=== PATIENT | female | born 1970 | race Caucasian/White ===

== ENCOUNTER 2024-02-04 07:18 | Emergency (ER) | payer SELFPAY ==
[~2024-02-04] VITALS: Ht 154.9 cm; Wt 55.5 kg
[2024-02-04 07:23] VITALS: BP 146/86; PULSE 73; RESP 16; TEMP 97.7; O2SAT 100
[2024-02-04] MEDS: KETOROLAC 30 MG/ML VIAL IM ONE (07:56)
[2024-02-04] MEDS: ACETAMINOPHEN EXTRA STRENGTH 500 MG TAB PO ONE (07:56)
[2024-02-04 08:33] LABS: BASOPHILS % (AUTO) 0.9 % (0.0-2.0); EOSINOPHILS % (AUTO) 1.1 % (0.0-4.0); HEMATOCRIT 37.5 % (36-48); HEMOGLOBIN 12.9 g/dL (12.0-16.0); LYMPHOCYTES # (AUTO) 1.1 K/uL (2.5-16.5); MEAN CORPUSCULAR HEMOGLOBIN 31 pg (27-31); MEAN CORPUSCULAR HGB CONC 34 g/dL (33-37); MEAN CORPUSCULAR VOLUME 89.4 fL (80-94); MONOCYTES # (AUTO) 0.5 K/uL (0.8-1.0); MONOCYTES % (AUTO) 12.6 % (1.7-9.3); NEUTROPHILS # (AUTO) 2.6 K/uL (1.8-7.7); NEUTROPHILS % (AUTO) 60.4 % (42.2-75.2); PLATELET COUNT (AUTO) 222 K/uL (140-450); RED CELL DISTRIBUTION WIDTH 12.4 % (11.6-13.7); WHITE BLOOD COUNT (AUTO) 4.3 K/uL (4.8-10.8)
[2024-02-04 08:52] LABS: ANION GAP 7.4 (8-16); CALCIUM 8.4 mg/dL (8.5-10.1); CARBON DIOXIDE 28.8 mmol/L (21-32); CREATININE 0.7 mg/dL (0.6-1.3); POTASSIUM 4.2 mmol/L (3.5-5.1)
[2024-02-04 08:57] LABS: ALBUMIN 2.7 g/dL (3.4-5.0); BILIRUBIN,DIRECT 0.1 mg/dL (0.0-0.3); TOTAL BILIRUBIN 0.4 mg/dL (0.0-1.0); TOTAL PROTEIN, SERUM 6.1 g/dL (6.4-8.2)
[2024-02-04 09:38] VITALS: BP 146/86; PULSE 73; RESP 16; TEMP 97.7; O2SAT 100
== END 2024-02-04 09:32 | disposition home or self-care (01) ==
LOC: MED 07:18
DX: K52.9 Noninfective gastroenteritis and colitis, unspecified (principal)
CPT/HCPCS: 36415; 74176; 80048; 80076; 81025; 83690; 85025; 96372; 99285; J1885